=== PATIENT | male | born 1985 | race Caucasian/White ===

== ENCOUNTER 2018-06-26 12:22 | Emergency (ER) | payer MEDICAID ==
[2018-06-26] MEDS: ACETAMINOPHEN 325 MG TAB PO (14:10)
[2018-06-26] MEDS: LIDOCAINE 1% (MDV) 10 ML INJ INJ (14:23)
[2018-06-26] MEDS: LIDOCAINE 1% (MDV) 20 ML INJ INJ (14:24)
== END 2018-06-26 15:17 | disposition home or self-care (01) ==
LOC: FTE 12:22
DX: S61.411A Laceration without foreign body of right hand, initial encounter (principal); W26.8XXA Contact with other sharp object(s), not elsewhere classified, initial encounter; Y92.9 Unspecified place or not applicable
CPT/HCPCS: 12002; 99282-25

== ENCOUNTER 2018-07-06 12:56 | Emergency (ER) | payer MEDICAID ==
[2018-07-06] MEDS: IBUPROFEN 600 MG TAB PO (15:18)
== END 2018-07-06 15:42 | disposition home or self-care (01) ==
LOC: FTE 12:56
DX: Z48.01 Encounter for change or removal of surgical wound dressing (principal)
CPT/HCPCS: 99282; Z7502

== ENCOUNTER 2018-07-15 09:27 | Emergency (ER) | payer MEDICAID | END 2018-07-15 10:01 | disposition home or self-care (01) | LOC: FTE 09:27 | DX: Z48.02 Encounter for removal of sutures (principal) | CPT/HCPCS: 99281; Z7502 ==

== ENCOUNTER 2018-10-03 08:21 | Emergency (ER) | payer MEDICAID ==
[2018-10-03] MEDS: LIDOCAINE/MYLANTA 40 ML BTL PO (09:37)
== END 2018-10-03 10:20 | disposition home or self-care (01) ==
LOC: FTE 08:21
DX: R10.13 Epigastric pain (principal)
CPT/HCPCS: 99282; Z7502

== ENCOUNTER 2018-12-14 06:09 | Emergency (ER) | payer MEDICAID ==
[2018-12-14] MEDS: ASPIRIN 325 MG TAB PO ×2 (06:36→08:57)
[2018-12-14 06:43] LABS: ADD MAN DIFF? NO
[2018-12-14 06:47] LABS: BASOPHIL # 0.1 10^3/ul (0.0-0.1); BASOPHILS % 0.5 % (0.0-2.0); EOSINOPHILS # 0.3 10^3/ul (0.0-0.5); EOSINOPHILS % 3.3 % (0.0-7.0); HEMATOCRIT 41.8 % (42.0-52.0); HEMOGLOBIN 14.5 g/dl (14.0-18.0); LYMPHOCYTES # 4.8 10^3/ul (0.8-2.9); LYMPHOCYTES % 50.6 % (15.0-51.0); MEAN CORPUSCULAR HEMOGLOBIN 31.5 pg (29.0-33.0); MEAN CORPUSCULAR HGB CONC 34.7 g/dl (32.0-37.0); MEAN CORPUSCULAR VOLUME 90.9 fl (82.0-101.0); MEAN PLATELET VOLUME 10.5 fl (7.4-10.4); MONOCYTE # 0.6 10^3/ul (0.3-0.9); MONOCYTES % 6.7 % (0.0-11.0); NEUTROPHIL # 3.7 10^3/ul (1.6-7.5); NEUTROPHILS % 38.6 % (39.0-77.0); PLATELET COUNT 233 10^3/UL (140-415); RED CELL DISTRIBUTION WIDTH 11.9 % (11.5-14.5)
[2018-12-14 06:47] LABS: WHITE BLOOD COUNT 9.5 10^3/ul (4.8-10.8)
[2018-12-14 07:20] LABS: ALANINE AMINOTRANSFERASE 59 IU/L (13-69); ALBUMIN 4.2 g/dl (3.3-4.9); ALKALINE PHOSPHATASE 100 IU/L (42-121); ANION GAP 11 (5-13); ASPARTATE AMINO TRANSFERASE 34 IU/L (15-46); BILIRUBIN,INDIRECT 0.4 mg/dl (0-1.1); BILIRUBIN,TOTAL 0.4 mg/dl (0.2-1.3); BLOOD UREA NITROGEN 20 mg/dl (7-20); CALCIUM 8.9 mg/dl (8.4-10.2); CARBON DIOXIDE 26 mmol/L (21-31); CHLORIDE 106 mmol/L (97-110); CREATININE 0.81 mg/dl (0.61-1.24); Estimated GFR > 60 mL/min (>60); GLUCOSE 177 mg/dl (70-220); SODIUM 143 mmol/L (135-144); TOTAL PROTEIN 7.2 g/dl (6.1-8.1)
[2018-12-14 07:33] LABS: B-TYPE NATRIURETIC PEPTIDE 11 PG/ML (0-125); TROPONIN-I < 0.012 ng/ml (0.000-0.120)
[2018-12-14] MEDS: LIDOCAINE/MYLANTA 40 ML BTL PO (07:36)
[2018-12-14] MEDS: ONDANSETRON 4 MG INJ IV (08:36)
[2018-12-14] MEDS: KETAMINE HCL (50 MG/ML) 1ml syringe IV (08:36)
[2018-12-14 10:09] LABS: TROPONIN-I < 0.012 ng/ml (0.000-0.120)
== END 2018-12-14 11:16 | disposition home or self-care (01) ==
LOC: E/R 06:09
DX: K80.20 Calculus of gallbladder without cholecystitis without obstruction (principal)
CPT/HCPCS: 36415; 71045; 76705; 80053; 83880; 84484; 85025; 93005; 99285-25